=== PATIENT | female | born 1995 | race Caucasian/White ===

== ENCOUNTER 2020-07-07 15:42 | Observation (INO) | END 2020-07-07 19:21 | disposition home or self-care (01) | LOC: 1NENULAB | PROVIDERS: ADMIT Obstetrics & Gynecology; ATTEND Obstetrics & Gynecology ==

== ENCOUNTER 2020-08-11 15:01 | Inpatient (IN) ==
[2020-08-11 14:32] LABS: Basophils % 0.4 %; Eosinophils # 0.1 K/mcL (0.0-0.6); Hematocrit 40.8 % (35.3-44.9); Hemoglobin 12.5 g/dL (11.5-15.4); Immature Granulocytes % 0.3 % (0-4); Lymphocytes # 2.8 K/mcL (0.6-4.6); Lymphocytes % 29.2 %; Mean Corpuscular HGB Conc 30.6 g/dL (31.6-35.5); Mean Corpuscular Hemoglobin 24.5 pg (28.0-33.3); Mean Platelet Volume 11.4 fL (9.4-12.4); Monocytes # 0.5 K/mcL (0.0-1.3); Monocytes % 5.4 %; Neutrophils # 6.2 K/mcL (1.6-8.9); Platelet Count 196 K/mcL (140-400); Red Cell Distribution Width 15.9 % (11.5-14.5); Segmented Neutrophils % 63.7 %; White Blood Count 9.7 K/mcL (4.3-11.1)
[2020-08-11 14:33] LABS: Amphetamine Screen,Urine Negative ng/mL (Cutoff=1000); Barbiturate Screen,Urine Negative ng/mL (Cutoff=200); Benzodiazepines Screen,Urine Negative ng/mL (Cutoff=200); Cannabinoid Screen,Urine Negative ng/mL (Cutoff = 50); Cocaine Screen,Urine Negative ng/mL (Cutoff= 300); Opiate Screen,Urine Negative ng/mL (Cutoff=300); Phencyclidine Screen,Urine Negative ng/mL (Cutoff=25)
[2020-08-11] MEDS: Ringers Solution, Lactated 1,000 ML IVC SCH ×2 (14:45→18:29)
[~2020-08-11 15:01] MED LIST: *HR* Nalbuphine 10 MG/ML AMPUL IV PRN; EPHEDrine 50 MG/ML VIAL IVP PRN; Epidural Premix (fent/bupiv) 110 ML EP SCH; Famotidine 20 MG/2 ML VIAL IVP PRN; Lidocaine 1% 20 ML MDV INFILT PRN; Metoclopramide 10 MG/2 ML VIAL IVP PRN; Naloxone 0.4 MG/ML INJ IVP PRN; Ondansetron 4 MG/2 ML VIAL IVP PRN; Oxytocin 20 units/ LR 1000 mL 20 UNIT/1,000 ML BAG IVC SCH
[2020-08-11] MEDS ORDERED: *HR* Ropivacaine/PF 0.5% 20 ML VIAL ONE (19:18)
[2020-08-11] MEDS ORDERED: *HR* FentaNYL (PF) 100 MCG/2 ML VIAL ONE (19:18)
[2020-08-11] MEDS ORDERED: Lidocaine -MPF 2% 5 ML VIAL ONE (19:26)
[2020-08-11] MEDS ORDERED: Sodium Bicarbonate 50 MEQ/50 ML VIAL ONE (19:27)
[2020-08-11] MEDS ORDERED: Oxytocin 20 units/ LR 1000 mL 20 UNIT/1,000 ML BAG IVC SCH (22:36)
[2020-08-11] MEDS ORDERED: Measles/Mumps/Rubella Vacc 0.5 ML VIAL SQ PRN (22:36)
[2020-08-12] MEDS ORDERED: Ibuprofen 600 MG TABLET PO SCH
[2020-08-12] MEDS ORDERED: Acetaminophen 325 MG TABLET PO SCH
[2020-08-12] MEDS ORDERED: Prenatal Vit/FA 1 EACH TABLET PO SCH (09:00)
[2020-08-12 15:25] VITALS: BP 107/72
== END 2020-08-12 19:05 | disposition home or self-care (01) | DRG 807 ==
LOC: 1NENULAB → 1NENUOBS 22:35
PROVIDERS: ADMIT Obstetrics & Gynecology; ATTEND Obstetrics & Gynecology